=== PATIENT | male | born 1980 | race African-American/Black ===

== ENCOUNTER 2016-12-04 15:09 | Inpatient (IN) | payer OTHER ==
[~2016-12-04] VITALS: Ht 175.3 cm; Wt 70.3 kg
[2016-12-04 15:10] VITALS: BP_SYST 122
[2016-12-04] MEDS ORDERED: FUROSEMIDE 100 MG/10 ML VIAL IVP ONE (16:00)
[2016-12-04] MEDS ORDERED: MORPHINE 4 MG/ML INJ. SYRINGE IVP ONE ×2 (16:00→18:45)
[2016-12-04] MEDS ORDERED: DIPHENHYDRAMINE INJ 50 MG/ML VIAL IVP ONE (16:00)
[2016-12-04 16:46] LABS: BASOPHILS # (AUTO) 0.2 K/uL (0.0-0.2); BASOPHILS % (AUTO) 1.7 % (0.0-2.0); EOSINOPHILS # (AUTO) 0.5 K/uL (0.0-0.4); EOSINOPHILS % (AUTO) 3.8 % (0.0-4.0); HEMATOCRIT 28.8 % (36-54); HEMOGLOBIN 9.5 g/dL (14.0-18.0); LYMPHOCYTES # (AUTO) 3.3 K/uL (1.0-5.5); LYMPHOCYTES % (AUTO) 26.6 % (20.5-51.5); MEAN CORPUSCULAR HEMOGLOBIN 31 pg (27-31); MEAN CORPUSCULAR HGB CONC 33 % (32-36); MEAN CORPUSCULAR VOLUME 94 fL (79.0-98.0); MONOCYTES # (AUTO) 1.5 K/uL (0.0-1.0); MONOCYTES % (AUTO) 12.3 % (1.7-9.3); NEUTROPHILS # (AUTO) 6.9 K/uL (1.8-7.7); NEUTROPHILS % (AUTO) 55.6 % (40.0-70.0); PLATELET COUNT (AUTO) 409 K/uL (130-430); RED BLOOD CELL COUNT(AUTO) 3.08 MIL/uL (4.2-6.2); RED CELL DISTRIBUTION WIDTH 23.6 % (9.0-15.0); WHITE BLOOD COUNT (AUTO) 12.4 K/uL (4.8-10.8)
[2016-12-04 16:59] LABS: INR 1.1 (0.80-1.20); PROTHROMBIN TIME 12.4 SECS (9.5-12.5)
[2016-12-04 17:04] LABS: POTASSIUM 3.5 mmol/L (3.5-5.1)
[2016-12-04 17:05] LABS: CALCIUM 7.9 mg/dL (8.4-11.0); CREATININE 0.93 mg/dL (0.55-1.30); TOTAL BILIRUBIN 0.8 mg/dL (0.0-1.0)
[2016-12-04 17:06] LABS: ALBUMIN 1.3 g/dL (3.4-4.8)
[2016-12-04] MEDS ORDERED: METOPROLOL TARTRATE 5 MG/5 ML VIAL IVP ONE (17:15)
[2016-12-04 17:40] LABS: BILIRUBIN,URINE NEGATIVE (NEGATIVE); BLOOD, URINE 1+ (NEGATIVE); CLARITY/URINE SL HAZY (CLEAR); COLOR,URINE YELLOW (YELLOW); GLUCOSE,URINE NEGATIVE (NEGATIVE); KETONES,URINE NEGATIVE (NEGATIVE); LEUKOCYTE ESTERASE ,URINE 2+ (NEGATIVE); NITRITE, URINE POSITIVE (NEGATIVE); PROTEIN URINE 1+ (NEGATIVE); UROBILINOGEN,URINE 0.2 (0.2-1.0)
[2016-12-04 18:05] LABS: BACTERIA,URINE MANY /HPF (None Seen)
[2016-12-04] MEDS ORDERED: ACETAMINOPHEN 325 MG TABLET PO PRN (18:30)
[2016-12-04] MEDS ORDERED: HYDROcodone/ACETAMIN 5-325 MG TAB (NORCO/ VICODIN) PO PRN (18:30)
[2016-12-04] MEDS ORDERED: ONDANSETRON HCL 4 MG/2 ML VIAL IVP PRN (18:30)
[2016-12-04] MEDS ORDERED: LORazepam 2 MG/ML VIAL IVP PRN (18:30)
[2016-12-04 20:00] VITALS: BP_SYST 148
[2016-12-04] MEDS: FUROSEMIDE 20 MG/2 ML VIAL IVP SCH (20:57)
[2016-12-04 21:00] VITALS: BP_SYST 149
[2016-12-04] MEDS: MORPHINE 2 MG/ML INJ. SYRINGE IVP PRN (21:05)
[2016-12-04] MEDS: LEVOFLOXACIN 500 MG/D5W 100 ML IV SCH (21:14)
[2016-12-04] MEDS ORDERED: LEVOFLOXACIN 500 MG/D5W 100 ML IV ONE (21:15)
[2016-12-04 22:00] VITALS: BP_SYST 125; BP_SYST 148
[2016-12-04] MEDS ORDERED: NORMAL SALINE 5 ML DISP.SYRIN IVF SCH (22:00)
[2016-12-04 23:00] VITALS: BP_SYST 145
[2016-12-04] MEDS ORDERED: D5/0.45 NS 1,000 ML IV SCH (23:00)
[2016-12-04] MEDS: NORMAL SALINE 5 ML DISP.SYRIN IVF SCH (23:00)
[2016-12-04] MEDS: amLODIPine BESYLATE 5 MG TABLET PO SCH (23:00)
[2016-12-04] MEDS: DIPHENHYDRAMINE INJ 50 MG/ML VIAL IVP PRN (23:50)
[2016-12-05] VITALS (16 sets, daily range): BP systolic 120–155
[2016-12-05] MEDS ORDERED: amLODIPine BESYLATE 5 MG TABLET ONE (00:15)
[2016-12-05] MEDS ORDERED: METOPROLOL TARTRATE 25 MG TABLET ONE (00:16)
[2016-12-05] MEDS: METOPROLOL TARTRATE 25 MG TABLET PO SCH ×2 (00:16→09:14)
[2016-12-05] MEDS: PHENYTOIN 100 MG CAPSULE PO SCH ×3 (00:16→20:30)
[2016-12-05] MEDS ORDERED: PHENYTOIN 100 MG CAPSULE ONE (00:18)
[2016-12-05] MEDS: MORPHINE 2 MG/ML INJ. SYRINGE IVP PRN ×5 (02:07→17:48)
[2016-12-05] MEDS: NORMAL SALINE 5 ML DISP.SYRIN IVF SCH ×3 (05:19→22:00)
[2016-12-05 07:05] LABS: HEMATOCRIT 26.1 % (36-54); HEMOGLOBIN 8.7 g/dL (14.0-18.0); MEAN CORPUSCULAR HGB CONC 33 % (32-36)
[2016-12-05 07:08] LABS: ALBUMIN 1.2 g/dL (3.4-4.8); C-REACTIVE PROTEIN QUANT 7.2 mg/dL (0-0.5); CALCIUM 8.4 mg/dL (8.4-11.0); CREATININE 0.93 mg/dL (0.55-1.30); PHOSPHORUS 4.1 mg/dL (2.7-4.5); POTASSIUM 3.1 mmol/L (3.5-5.1)
[2016-12-05 07:09] LABS: MEAN CORPUSCULAR HEMOGLOBIN 31 pg (27-31); MEAN CORPUSCULAR VOLUME 92 fL (79.0-98.0); PLATELET COUNT (AUTO) 365 K/uL (130-430); RED BLOOD CELL COUNT(AUTO) 2.83 MIL/uL (4.2-6.2); WHITE BLOOD COUNT (AUTO) 12.6 K/uL (4.8-10.8)
[2016-12-05 07:59] LABS: ERYTHROCYTE SEDIMENTATION RATE 86 MM/HR (0-15)
[2016-12-05 08:26] LABS: LYMPHOCYTES % (MANUAL) 28 % (20-46)
[2016-12-05 08:27] LABS: BASOPHILS % (MANUAL) 0 % (0-2); EOSINOPHILS % (MANUAL) 1 % (0-7); MONOCYTES % (MANUAL) 12 % (0-11)
[2016-12-05] MEDS: amLODIPine BESYLATE 5 MG TABLET PO SCH (09:15)
[2016-12-05] MEDS: FUROSEMIDE 20 MG/2 ML VIAL IVP SCH ×2 (09:17→20:33)
[2016-12-05] MEDS ORDERED: MORPHINE 2 MG/ML INJ. SYRINGE ONE (11:25)
[2016-12-05] MEDS: DIPHENHYDRAMINE INJ 50 MG/ML VIAL IVP PRN ×2 (11:32→20:15)
[2016-12-05] MEDS ORDERED: POTASSIUM CHLORIDE 20 MEQ TAB.PRT.SR PO ONE (11:45)
[2016-12-05] MEDS ORDERED: VANCOMYCIN HCL 1,000 MG in NS 250 ML IV SCH (17:00)
[2016-12-05] MEDS: LEVOFLOXACIN 500 MG/D5W 100 ML IV SCH (18:22)
[2016-12-05] MEDS: METOPROLOL TARTRATE 50 MG TABLET PO SCH (20:31)
[2016-12-05] MEDS: HYDROcodone/ACETAMIN 10-325 MG TAB PO PRN (23:48)
[2016-12-06] VITALS: BP_SYST 112
[2016-12-06] MEDS: MORPHINE 2 MG/ML INJ. SYRINGE IVP PRN ×6 (02:09→22:10)
[2016-12-06] MEDS: DIPHENHYDRAMINE INJ 50 MG/ML VIAL IVP PRN ×3 (02:09→17:19)
[2016-12-06 04:00] VITALS: BP_SYST 115
[2016-12-06] MEDS: NORMAL SALINE 5 ML DISP.SYRIN IVF SCH ×3 (06:10→22:15)
[2016-12-06 07:39] LABS: BASOPHILS % (AUTO) 0.3 % (0.0-2.0); EOSINOPHILS # (AUTO) 0.3 K/uL (0.0-0.4); EOSINOPHILS % (AUTO) 2.8 % (0.0-4.0); HEMATOCRIT 25.8 % (36-54); HEMOGLOBIN 8.7 g/dL (14.0-18.0); LYMPHOCYTES # (AUTO) 3.8 K/uL (1.0-5.5); LYMPHOCYTES % (AUTO) 31.7 % (20.5-51.5); MEAN CORPUSCULAR HEMOGLOBIN 32 pg (27-31); MEAN CORPUSCULAR HGB CONC 34 % (32-36); MONOCYTES # (AUTO) 1.6 K/uL (0.0-1.0); MONOCYTES % (AUTO) 13.6 % (1.7-9.3); NEUTROPHILS # (AUTO) 6.3 K/uL (1.8-7.7); NEUTROPHILS % (AUTO) 51.6 % (40.0-70.0); PLATELET COUNT (AUTO) 347 K/uL (130-430); RED BLOOD CELL COUNT(AUTO) 2.76 MIL/uL (4.2-6.2); RED CELL DISTRIBUTION WIDTH 23.5 % (9.0-15.0)
[2016-12-06 08:00] VITALS: BP_SYST 124
[2016-12-06 08:03] LABS: C-REACTIVE PROTEIN QUANT 9.3 mg/dL (0-0.5); CALCIUM 8.6 mg/dL (8.4-11.0); CREATININE 1.02 mg/dL (0.55-1.30); POTASSIUM 3.7 mmol/L (3.5-5.1)
[2016-12-06 08:05] LABS: MEAN CORPUSCULAR VOLUME 94 fL (79.0-98.0)
[2016-12-06] MEDS: HYDROcodone/ACETAMIN 10-325 MG TAB PO PRN ×3 (08:31→23:47)
[2016-12-06] MEDS: PHENYTOIN 100 MG CAPSULE PO SCH ×2 (08:37→21:24)
[2016-12-06] MEDS: FUROSEMIDE 20 MG/2 ML VIAL IVP SCH ×2 (08:37→21:25)
[2016-12-06] MEDS: METOPROLOL TARTRATE 50 MG TABLET PO SCH ×2 (08:38→21:24)
[2016-12-06] MEDS: ENOXAPARIN SODIUM 40 MG/0.4 ML SYRINGE SUBCUT SCH (08:39)
[2016-12-06] MEDS: amLODIPine BESYLATE 5 MG TABLET PO SCH (08:39)
[2016-12-06 09:24] LABS: ERYTHROCYTE SEDIMENTATION RATE 85 MM/HR (0-15)
[2016-12-06 12:52] VITALS: BP_SYST 122
[2016-12-06] MEDS: VANCOMYCIN HCL 1,000 MG in NS 250 ML IV SCH (16:11)
[2016-12-06 16:14] VITALS: BP_SYST 126
[2016-12-06] MEDS: LEVOFLOXACIN 500 MG/D5W 100 ML IV SCH (17:55)
[2016-12-06 20:00] VITALS: BP_SYST 127
[2016-12-07 00:24] VITALS: BP_SYST 134
[2016-12-07] MEDS: DIPHENHYDRAMINE INJ 50 MG/ML VIAL IVP PRN ×4 (00:26→17:38)
[2016-12-07] MEDS: MORPHINE 2 MG/ML INJ. SYRINGE IVP PRN ×6 (03:32→23:34)
[2016-12-07] MEDS: VANCOMYCIN HCL 1,000 MG in NS 250 ML IV SCH ×2 (05:37→17:36)
[2016-12-07] MEDS: NORMAL SALINE 5 ML DISP.SYRIN IVF SCH ×3 (05:40→21:21)
[2016-12-07] MEDS: HYDROcodone/ACETAMIN 10-325 MG TAB PO PRN ×4 (05:49→21:21)
[2016-12-07 06:02] VITALS: BP_SYST 120
[2016-12-07 07:48] LABS: BASOPHILS % (AUTO) 0.4 % (0.0-2.0); EOSINOPHILS # (AUTO) 0.3 K/uL (0.0-0.4); EOSINOPHILS % (AUTO) 2.9 % (0.0-4.0); HEMOGLOBIN 8.7 g/dL (14.0-18.0); LYMPHOCYTES # (AUTO) 3.1 K/uL (1.0-5.5); LYMPHOCYTES % (AUTO) 26.7 % (20.5-51.5); MEAN CORPUSCULAR HEMOGLOBIN 32 pg (27-31); MEAN CORPUSCULAR HGB CONC 33 % (32-36); MEAN CORPUSCULAR VOLUME 95 fL (79.0-98.0); MONOCYTES # (AUTO) 1.2 K/uL (0.0-1.0); NEUTROPHILS # (AUTO) 7.1 K/uL (1.8-7.7); PLATELET COUNT (AUTO) 338 K/uL (130-430); RED BLOOD CELL COUNT(AUTO) 2.77 MIL/uL (4.2-6.2); RED CELL DISTRIBUTION WIDTH 22.8 % (9.0-15.0); WHITE BLOOD COUNT (AUTO) 11.7 K/uL (4.8-10.8)
[2016-12-07 07:57] LABS: ALBUMIN 1.3 g/dL (3.4-4.8); C-REACTIVE PROTEIN QUANT 10.5 mg/dL (0-0.5); CALCIUM 8.5 mg/dL (8.4-11.0); CREATININE 1.11 mg/dL (0.55-1.30); POTASSIUM 3.6 mmol/L (3.5-5.1); TOTAL BILIRUBIN 0.9 mg/dL (0.0-1.0)
[2016-12-07 08:00] VITALS: BP_SYST 121
[2016-12-07 08:10] LABS: HEMATOCRIT 26.2 % (36-54)
[2016-12-07 09:13] LABS: ERYTHROCYTE SEDIMENTATION RATE 86 MM/HR (0-15)
[2016-12-07] MEDS: PHENYTOIN 100 MG CAPSULE PO SCH ×2 (10:02→21:20)
[2016-12-07] MEDS: METOPROLOL TARTRATE 50 MG TABLET PO SCH ×2 (10:03→21:20)
[2016-12-07] MEDS: ENOXAPARIN SODIUM 40 MG/0.4 ML SYRINGE SUBCUT SCH (10:04)
[2016-12-07] MEDS: amLODIPine BESYLATE 5 MG TABLET PO SCH (10:06)
[2016-12-07] MEDS: FUROSEMIDE 20 MG/2 ML VIAL IVP SCH ×2 (10:42→21:19)
[2016-12-07] MEDS ORDERED: POTASSIUM CHLORIDE 20 MEQ TAB.PRT.SR PO ONE (11:00)
[2016-12-07 14:29] LABS: INR 1.3 (0.80-1.20); PROTHROMBIN TIME 14.7 SECS (9.5-12.5)
[2016-12-07 14:48] LABS: TOTAL IRON BIND. CAPACITY 148 ug/dL (250-450)
[2016-12-07 14:49] LABS: ACETAMINOPHEN 2 ug/mL (1-30)
[2016-12-07] MEDS: LEVOFLOXACIN 500 MG/D5W 100 ML IV SCH (19:14)
[2016-12-07 19:40] VITALS: BP_SYST 122
[2016-12-08 00:28] LABS: TPROTEIN U,24HR 426.7 mg/24HR (0-130)
[2016-12-08] MEDS: DIPHENHYDRAMINE INJ 50 MG/ML VIAL IVP PRN ×3 (00:36→20:40)
[2016-12-08 00:47] VITALS: BP_SYST 120
[2016-12-08] MEDS: HYDROcodone/ACETAMIN 10-325 MG TAB PO PRN ×2 (02:18→09:12)
[2016-12-08] MEDS: MORPHINE 2 MG/ML INJ. SYRINGE IVP PRN ×5 (03:31→22:12)
[2016-12-08] MEDS: VANCOMYCIN HCL 1,000 MG in NS 250 ML IV SCH ×2 (04:08→16:15)
[2016-12-08 04:09] VITALS: BP_SYST 115
[2016-12-08 07:16] LABS: BASOPHILS # (AUTO) 0.1 K/uL (0.0-0.2); BASOPHILS % (AUTO) 0.5 % (0.0-2.0); EOSINOPHILS # (AUTO) 0.3 K/uL (0.0-0.4); EOSINOPHILS % (AUTO) 2.2 % (0.0-4.0); HEMATOCRIT 24.5 % (36-54); HEMOGLOBIN 8.2 g/dL (14.0-18.0); LYMPHOCYTES # (AUTO) 3.4 K/uL (1.0-5.5); LYMPHOCYTES % (AUTO) 26.2 % (20.5-51.5); MEAN CORPUSCULAR HEMOGLOBIN 31 pg (27-31); MEAN CORPUSCULAR HGB CONC 33 % (32-36); MEAN CORPUSCULAR VOLUME 93 fL (79.0-98.0); MONOCYTES # (AUTO) 1.5 K/uL (0.0-1.0); MONOCYTES % (AUTO) 11.4 % (1.7-9.3); NEUTROPHILS # (AUTO) 7.5 K/uL (1.8-7.7); NEUTROPHILS % (AUTO) 59.7 % (40.0-70.0); PLATELET COUNT (AUTO) 325 K/uL (130-430); RED BLOOD CELL COUNT(AUTO) 2.63 MIL/uL (4.2-6.2); RED CELL DISTRIBUTION WIDTH 22.9 % (9.0-15.0); WHITE BLOOD COUNT (AUTO) 12.8 K/uL (4.8-10.8)
[2016-12-08 07:49] LABS: ALBUMIN 1.2 g/dL (3.4-4.8); CALCIUM 8.2 mg/dL (8.4-11.0); CREATININE 1.11 mg/dL (0.55-1.30); POTASSIUM 3.6 mmol/L (3.5-5.1)
[2016-12-08 08:07] LABS: C-REACTIVE PROTEIN QUANT 10.7 mg/dL (0-0.5)
[2016-12-08 08:30] LABS: ERYTHROCYTE SEDIMENTATION RATE 91 MM/HR (0-15)
[2016-12-08 08:32] VITALS: BP_SYST 128
[2016-12-08] MEDS: FUROSEMIDE 20 MG/2 ML VIAL IVP SCH ×2 (08:45→22:11)
[2016-12-08] MEDS: PHENYTOIN 100 MG CAPSULE PO SCH ×2 (09:11→22:08)
[2016-12-08] MEDS: amLODIPine BESYLATE 5 MG TABLET PO SCH (09:12)
[2016-12-08] MEDS: ENOXAPARIN SODIUM 40 MG/0.4 ML SYRINGE SUBCUT SCH (09:13)
[2016-12-08] MEDS: METOPROLOL TARTRATE 50 MG TABLET PO SCH ×2 (09:13→21:00)
[2016-12-08 11:32] LABS: BARBITURATE, URINE POSITIVE (NEG <=200); OPIATE, URINE POSITIVE (NEG <=100)
[2016-12-08 11:33] LABS: BENZODIAZEPINE, URINE NEGATIVE (NEG <=150); CANNABINOID, URINE NEGATIVE (NEG <=50); COCAINE, URINE NEGATIVE (NEG <=150); METHAMPHETAMINES SCREEN,URINE NEGATIVE (NEG <=500); PHENCYCLIDINE SCREEN,URINE NEGATIVE (NEG <=25); UR TRICYCLIC ANTIDEPRESSANTS NEGATIVE (NEG <=300); URINE AMPHETAMINE NEGATIVE (NEG <=500); URINE METHADONE NEGATIVE (NEG <=200); URINE OXYCODONE SCREEN NEGATIVE (NEG <=100); URINE PROPOXYPHENE SCREEN NEGATIVE (NEG <=300)
[2016-12-08 12:23] VITALS: BP_SYST 111
[2016-12-08] MEDS: NORMAL SALINE 5 ML DISP.SYRIN IVF SCH ×2 (14:00→22:11)
[2016-12-08 16:07] VITALS: BP_SYST 131
[2016-12-08] MEDS: LEVOFLOXACIN 500 MG/D5W 100 ML IV SCH (18:28)
[2016-12-08 20:00] VITALS: BP_SYST 114
[2016-12-09 00:07] VITALS: BP_SYST 128
[2016-12-09] MEDS: HYDROcodone/ACETAMIN 10-325 MG TAB PO PRN ×4 (00:39→22:23)
[2016-12-09] MEDS: MORPHINE 2 MG/ML INJ. SYRINGE IVP PRN ×5 (02:22→20:07)
[2016-12-09 04:45] VITALS: BP_SYST 152
[2016-12-09] MEDS: NORMAL SALINE 5 ML DISP.SYRIN IVF SCH ×3 (06:21→20:06)
[2016-12-09] MEDS ORDERED: VANCOMYCIN HCL 1000 MG/VIAL IV ONE (06:21)
[2016-12-09] MEDS: VANCOMYCIN HCL 1,000 MG in NS 250 ML IV SCH ×2 (06:21→16:44)
[2016-12-09 07:39] LABS: ALBUMIN 1.2 g/dL (3.4-4.8); BILIRUBIN,DIRECT 0.4 mg/dL (0.0-0.3); CALCIUM 8.2 mg/dL (8.4-11.0); CREATININE 0.96 mg/dL (0.55-1.30); TOTAL BILIRUBIN 1.1 mg/dL (0.0-1.0)
[2016-12-09 08:00] VITALS: BP_SYST 135
[2016-12-09] MEDS: PHENYTOIN 100 MG CAPSULE PO SCH ×2 (08:35→20:05)
[2016-12-09] MEDS: amLODIPine BESYLATE 5 MG TABLET PO SCH (08:35)
[2016-12-09] MEDS: METOPROLOL TARTRATE 50 MG TABLET PO SCH ×2 (08:36→20:05)
[2016-12-09] MEDS: FUROSEMIDE 20 MG/2 ML VIAL IVP SCH ×2 (08:38→20:10)
[2016-12-09] MEDS: DIPHENHYDRAMINE INJ 50 MG/ML VIAL IVP PRN ×3 (08:38→22:28)
[2016-12-09] MEDS: ENOXAPARIN SODIUM 40 MG/0.4 ML SYRINGE SUBCUT SCH (08:38)
[2016-12-09 12:47] VITALS: BP_SYST 129
[2016-12-09 16:12] VITALS: BP_SYST 123
[2016-12-09] MEDS: LEVOFLOXACIN 500 MG/D5W 100 ML IV SCH (18:47)
[2016-12-09 20:20] VITALS: BP_SYST 132
[2016-12-09] MEDS ORDERED: POTASSIUM CHLORIDE 20 MEQ TAB.PRT.SR PO ONE (21:00)
[2016-12-10 00:21] VITALS: BP_SYST 119
[2016-12-10] MEDS: MORPHINE 2 MG/ML INJ. SYRINGE IVP PRN ×6 (01:15→23:01)
[2016-12-10] MEDS: HYDROcodone/ACETAMIN 10-325 MG TAB PO PRN ×5 (02:23→21:10)
[2016-12-10] MEDS: DIPHENHYDRAMINE INJ 50 MG/ML VIAL IVP PRN ×3 (04:31→16:23)
[2016-12-10] MEDS: VANCOMYCIN HCL 1,000 MG in NS 250 ML IV SCH ×2 (04:33→17:01)
[2016-12-10 04:44] VITALS: BP_SYST 109
[2016-12-10] MEDS: NORMAL SALINE 5 ML DISP.SYRIN IVF SCH ×3 (05:51→21:14)
[2016-12-10 08:02] VITALS: BP_SYST 119
[2016-12-10] MEDS: ENOXAPARIN SODIUM 40 MG/0.4 ML SYRINGE SUBCUT SCH (08:49)
[2016-12-10] MEDS: PHENYTOIN 100 MG CAPSULE PO SCH ×2 (08:50→21:08)
[2016-12-10] MEDS: amLODIPine BESYLATE 5 MG TABLET PO SCH (08:50)
[2016-12-10] MEDS: METOPROLOL TARTRATE 50 MG TABLET PO SCH ×2 (08:51→21:08)
[2016-12-10] MEDS: FUROSEMIDE 20 MG/2 ML VIAL IVP SCH ×2 (08:53→21:09)
[2016-12-10] MEDS ORDERED: POTASSIUM CHLORIDE 20 MEQ TAB.PRT.SR PO ONE (10:30)
[2016-12-10 11:57] VITALS: BP_SYST 134
[2016-12-10 12:05] LABS: BASOPHILS # (AUTO) 0.1 K/uL (0.0-0.2); BASOPHILS % (AUTO) 1.1 % (0.0-2.0); EOSINOPHILS # (AUTO) 0.6 K/uL (0.0-0.4); EOSINOPHILS % (AUTO) 4.9 % (0.0-4.0); HEMATOCRIT 28.8 % (36-54); HEMOGLOBIN 9.3 g/dL (14.0-18.0); LYMPHOCYTES # (AUTO) 2.7 K/uL (1.0-5.5); LYMPHOCYTES % (AUTO) 22.9 % (20.5-51.5); MEAN CORPUSCULAR HEMOGLOBIN 31 pg (27-31); MEAN CORPUSCULAR HGB CONC 32 % (32-36); MEAN CORPUSCULAR VOLUME 95 fL (79.0-98.0); MONOCYTES # (AUTO) 1.3 K/uL (0.0-1.0); MONOCYTES % (AUTO) 10.9 % (1.7-9.3); NEUTROPHILS # (AUTO) 7.1 K/uL (1.8-7.7); PLATELET COUNT (AUTO) 369 K/uL (130-430); RED BLOOD CELL COUNT(AUTO) 3.03 MIL/uL (4.2-6.2); RED CELL DISTRIBUTION WIDTH 23.2 % (9.0-15.0); WHITE BLOOD COUNT (AUTO) 11.8 K/uL (4.8-10.8)
[2016-12-10 12:23] LABS: ALBUMIN 1.4 g/dL (3.4-4.8); BILIRUBIN,DIRECT 0.3 mg/dL (0.0-0.3); C-REACTIVE PROTEIN QUANT 9.2 mg/dL (0-0.5); CALCIUM 8.4 mg/dL (8.4-11.0); CREATININE 0.89 mg/dL (0.55-1.30); POTASSIUM 3.4 mmol/L (3.5-5.1)
[2016-12-10 12:37] LABS: NEUTROPHILS % (AUTO) 60.2 % (40.0-70.0)
[2016-12-10 12:52] LABS: ERYTHROCYTE SEDIMENTATION RATE 95 MM/HR (0-15)
[2016-12-10 16:17] VITALS: BP_SYST 130
[2016-12-10] MEDS: LEVOFLOXACIN 500 MG/D5W 100 ML IV SCH (18:48)
[2016-12-10 20:10] VITALS: BP_SYST 136
[2016-12-11] MEDS: DIPHENHYDRAMINE INJ 50 MG/ML VIAL IVP PRN ×4 (00:02→22:32)
[2016-12-11 00:14] VITALS: BP_SYST 127
[2016-12-11] MEDS: MORPHINE 2 MG/ML INJ. SYRINGE IVP PRN ×2 (02:54→06:41)
[2016-12-11] MEDS: VANCOMYCIN HCL 1,000 MG in NS 250 ML IV SCH ×2 (04:04→17:27)
[2016-12-11] MEDS: HYDROcodone/ACETAMIN 10-325 MG TAB PO PRN ×4 (04:57→21:05)
[2016-12-11] MEDS: NORMAL SALINE 5 ML DISP.SYRIN IVF SCH ×3 (04:57→20:50)
[2016-12-11 05:08] VITALS: BP_SYST 125
[2016-12-11 06:41] LABS: ALBUMIN 1.3 g/dL (3.4-4.8); CALCIUM 8.2 mg/dL (8.4-11.0); CREATININE 0.89 mg/dL (0.55-1.30); POTASSIUM 3.4 mmol/L (3.5-5.1)
[2016-12-11 08:00] VITALS: BP_SYST 133
[2016-12-11] MEDS: METOPROLOL TARTRATE 50 MG TABLET PO SCH ×2 (08:37→20:49)
[2016-12-11] MEDS: amLODIPine BESYLATE 5 MG TABLET PO SCH (08:38)
[2016-12-11] MEDS: ENOXAPARIN SODIUM 40 MG/0.4 ML SYRINGE SUBCUT SCH (08:38)
[2016-12-11] MEDS: PHENYTOIN 100 MG CAPSULE PO SCH ×2 (08:39→20:49)
[2016-12-11] MEDS: FUROSEMIDE 20 MG/2 ML VIAL IVP SCH ×2 (08:39→22:25)
[2016-12-11 12:15] VITALS: BP_SYST 133
[2016-12-11] MEDS: MORPHINE 4 MG/ML INJ. SYRINGE IVP PRN ×3 (14:14→23:02)
[2016-12-11 16:08] VITALS: BP_SYST 139
[2016-12-11 20:00] VITALS: BP_SYST 143
[2016-12-11] MEDS ORDERED: BEN50 PO (21:00)
[2016-12-11] MEDS ORDERED: HYDR-4100 PO (21:00)
[2016-12-11] MEDS ORDERED: AMLO5TAB4 PO (21:00)
[2016-12-11] MEDS ORDERED: BACL10TA PO (21:00)
[2016-12-11] MEDS ORDERED: MORP4SYR IVP (21:00)
[2016-12-11] MEDS ORDERED: METO-442 PO (21:00)
[2016-12-11] MEDS ORDERED: PHEN100C4 PO (21:00)
[2016-12-11] MEDS: BACLOFEN 10 MG TABLET PO SCH (22:24)
[2016-12-12 00:58] VITALS: BP_SYST 136
[2016-12-12] MEDS: HYDROcodone/ACETAMIN 10-325 MG TAB PO PRN ×4 (01:19→15:20)
[2016-12-12] MEDS: MORPHINE 4 MG/ML INJ. SYRINGE IVP PRN ×4 (03:24→16:35)
[2016-12-12] MEDS: DIPHENHYDRAMINE INJ 50 MG/ML VIAL IVP PRN ×2 (04:48→10:49)
[2016-12-12 04:51] VITALS: BP_SYST 138
[2016-12-12] MEDS: VANCOMYCIN HCL 1,000 MG in NS 250 ML IV SCH (04:51)
[2016-12-12] MEDS: NORMAL SALINE 5 ML DISP.SYRIN IVF SCH ×2 (06:11→14:00)
[2016-12-12 07:37] LABS: BASOPHILS # (AUTO) 0.1 K/uL (0.0-0.2); BASOPHILS % (AUTO) 0.4 % (0.0-2.0); EOSINOPHILS # (AUTO) 0.6 K/uL (0.0-0.4); EOSINOPHILS % (AUTO) 4.7 % (0.0-4.0); HEMATOCRIT 26.7 % (36-54); HEMOGLOBIN 8.7 g/dL (14.0-18.0); LYMPHOCYTES # (AUTO) 3.6 K/uL (1.0-5.5); LYMPHOCYTES % (AUTO) 28.9 % (20.5-51.5); MEAN CORPUSCULAR HEMOGLOBIN 31 pg (27-31); MEAN CORPUSCULAR HGB CONC 33 % (32-36); MEAN CORPUSCULAR VOLUME 96 fL (79.0-98.0); MONOCYTES # (AUTO) 1.6 K/uL (0.0-1.0); MONOCYTES % (AUTO) 12.4 % (1.7-9.3); NEUTROPHILS # (AUTO) 6.7 K/uL (1.8-7.7); NEUTROPHILS % (AUTO) 53.6 % (40.0-70.0); PLATELET COUNT (AUTO) 325 K/uL (130-430); RED BLOOD CELL COUNT(AUTO) 2.79 MIL/uL (4.2-6.2); RED CELL DISTRIBUTION WIDTH 23.2 % (9.0-15.0); WHITE BLOOD COUNT (AUTO) 12.6 K/uL (4.8-10.8)
[2016-12-12 08:02] LABS: ALBUMIN 1.4 g/dL (3.4-4.8); BILIRUBIN,DIRECT 0.3 mg/dL (0.0-0.3); C-REACTIVE PROTEIN QUANT 6.1 mg/dL (0-0.5); CALCIUM 7.9 mg/dL (8.4-11.0); CREATININE 0.81 mg/dL (0.55-1.30); POTASSIUM 3.4 mmol/L (3.5-5.1); TOTAL BILIRUBIN 0.8 mg/dL (0.0-1.0)
[2016-12-12 08:28] VITALS: BP_SYST 127
[2016-12-12 08:40] LABS: ERYTHROCYTE SEDIMENTATION RATE 77 MM/HR (0-15)
[2016-12-12] MEDS: METOPROLOL TARTRATE 50 MG TABLET PO SCH (08:42)
[2016-12-12] MEDS: PHENYTOIN 100 MG CAPSULE PO SCH (08:42)
[2016-12-12] MEDS: BACLOFEN 10 MG TABLET PO SCH ×2 (08:43→15:20)
[2016-12-12] MEDS: amLODIPine BESYLATE 5 MG TABLET PO SCH (08:43)
[2016-12-12] MEDS: FUROSEMIDE 20 MG/2 ML VIAL IVP SCH (10:24)
[2016-12-12] MEDS: ENOXAPARIN SODIUM 40 MG/0.4 ML SYRINGE SUBCUT SCH (10:24)
[2016-12-12 11:26] VITALS: BP_SYST 138
[2016-12-12] MEDS ORDERED: POTASSIUM CHLORIDE 20 MEQ TAB.PRT.SR PO ONE (13:45)
[2016-12-12 14:00] LABS: ANTI NUCLEAR AB WITH REFLEX Negative (Negative); CERULOPLASMIN 32.5 mg/dL (16.0-31.0); HEPATITIS A AB, IgM Negative (Negative); HEPATITIS B CORE AB, IgM Negative (Negative); HEPATITIS B SURFACE AG Negative (Negative); LIVER-KIDNEY MICROSOMAL AB 2.2 Units (0.0-20.0)
[2016-12-12 14:11] LABS: FERRITIN 1275 ng/mL (30-400)
[2016-12-12 14:13] LABS: ALPHA-1-ANTITRYPSIN, S 292 mg/dL (90-200)
[2016-12-12 14:14] LABS: ANTI-SMOOTH MUSCLE AB 21 Units (0-19)
[2016-12-12 15:36] VITALS: BP_SYST 125
[2016-12-12 15:51] VITALS: BP_SYST 125
== END 2016-12-12 16:50 | DRG 720 ==
LOC: SED 15:09 → SIC 18:10 → STU 12-05 14:17 → SMU 12-10 10:53
PROVIDERS: ADMIT Preventive Medicine Preventive Medicine/Occupational Environmental Medicine; ATTEND Preventive Medicine Preventive Medicine/Occupational Environmental Medicine
DX: A41.9 Sepsis, unspecified organism (principal); I50.23 Acute on chronic systolic (congestive) heart failure; E43 Unspecified severe protein-calorie malnutrition; S72.001A Fracture of unspecified part of neck of right femur, initial encounter for closed fracture; I11.0 Hypertensive heart disease with heart failure; J18.9 Pneumonia, unspecified organism; S72.002A Fracture of unspecified part of neck of left femur, initial encounter for closed fracture; I50.9 Heart failure, unspecified; N39.0 Urinary tract infection, site not specified; D64.9 Anemia, unspecified; E88.09 Other disorders of plasma-protein metabolism, not elsewhere classified; R73.9 Hyperglycemia, unspecified; R74.0 Nonspecific elevation of levels of transaminase and lactic acid dehydrogenase [LDH]; E83.52 Hypercalcemia; E87.5 Hyperkalemia; G89.29 Other chronic pain; I47.1 Supraventricular tachycardia; L89.90 Pressure ulcer of unspecified site, unspecified stage; G40.909 Epilepsy, unspecified, not intractable, without status epilepticus; J45.909 Unspecified asthma, uncomplicated; W19.XXXA Unspecified fall, initial encounter; Y93.89 Activity, other specified; Y92.89 Other specified places as the place of occurrence of the external cause; Y99.8 Other external cause status; Z87.11 Personal history of peptic ulcer disease; Z91.018 Allergy to other foods; Z90.49 Acquired absence of other specified parts of digestive tract; Z87.891 Personal history of nicotine dependence; Z86.14 Personal history of Methicillin resistant Staphylococcus aureus infection; Z22.322 Carrier or suspected carrier of Methicillin resistant Staphylococcus aureus
CPT/HCPCS: 36415; 71010; 72170-TC; 76700-TC; 80048; 80053; 80074; 80076; 80202-TC; 80307; 81000-TC; 82103; 82105; 82390; 82550-TC; 82728; 82784; 83516; 83540-TC; 83550-TC; 83605; 83735-TC; 83880; 84100-TC; 84156; 84484; 85007; 85025; 85027; 85610-TC; 85651-TC; 85730-TC; 86038; 86140; 86376; 87040-TC; 87081; 87086; 93005; 93306; 96374; 96375; 96376; 99291; G0480; G0481; J1200; J1650; J1940; J1956; J2060; J2270; J2405; J3370; J3490; J7040; J7050

== ENCOUNTER 2016-12-28 11:57 | Inpatient (IN) | payer OTHER ==
[~2016-12-28] VITALS: Ht 175.3 cm; Wt 75.7 kg
[2016-12-28 11:57] VITALS: BP_SYST 143
[~2016-12-28 11:57] MED LIST: AMLO5TAB4 PO; BACL10TA PO; BEN50 PO; HYDR-4100 PO; METO-442 PO; MORP4SYR IVP; PHEN100C4 PO
[2016-12-28] MEDS ORDERED: MORPHINE 2 MG/ML INJ. SYRINGE IVP ONE (12:30)
[2016-12-28 12:37] LABS: HEMOGLOBIN 9.6 g/dL (14.0-18.0); RED CELL DISTRIBUTION WIDTH 17.2 % (9.0-15.0)
[2016-12-28 12:40] LABS: BASOPHILS # (AUTO) 0.1 K/uL (0.0-0.2); EOSINOPHILS # (AUTO) 0.5 K/uL (0.0-0.4); EOSINOPHILS % (AUTO) 6.4 % (0.0-4.0); HEMATOCRIT 29.3 % (36-54); LYMPHOCYTES # (AUTO) 1.9 K/uL (1.0-5.5); LYMPHOCYTES % (AUTO) 22.5 % (20.5-51.5); MEAN CORPUSCULAR HEMOGLOBIN 31 pg (27-31); MEAN CORPUSCULAR HGB CONC 33 % (32-36); MEAN CORPUSCULAR VOLUME 95 fL (79.0-98.0); MONOCYTES % (AUTO) 11.7 % (1.7-9.3); NEUTROPHILS # (AUTO) 4.9 K/uL (1.8-7.7); NEUTROPHILS % (AUTO) 58.4 % (40.0-70.0); PLATELET COUNT (AUTO) 360 K/uL (130-430); RED BLOOD CELL COUNT(AUTO) 3.09 MIL/uL (4.2-6.2); WHITE BLOOD COUNT (AUTO) 8.4 K/uL (4.8-10.8)
[2016-12-28 12:42] LABS: CALCIUM 8.4 mg/dL (8.4-11.0); CREATININE 0.81 mg/dL (0.55-1.30); POTASSIUM 3.8 mmol/L (3.5-5.1)
[2016-12-28 12:46] LABS: INR 1.1 (0.80-1.20); PROTHROMBIN TIME 12.1 SECS (9.5-12.5)
[2016-12-28 12:47] LABS: ALBUMIN 1.9 g/dL (3.4-4.8); TOTAL BILIRUBIN 0.5 mg/dL (0.0-1.0)
[2016-12-28] MEDS ORDERED: FUROSEMIDE 40 MG/4 ML VIAL IVP ONE (13:45)
[2016-12-28] MEDS ORDERED: NITROGLYCERIN 1 INCH (GM) OINT. TP ONE (13:45)
[2016-12-28] MEDS ORDERED: DIPHENHYDRAMINE INJ 50 MG/ML VIAL IVP ONE (13:45)
[2016-12-28] MEDS ORDERED: LORazepam 2 MG/ML VIAL IVP PRN (14:30)
[2016-12-28] MEDS ORDERED: ONDANSETRON HCL 4 MG/2 ML VIAL IVP PRN (14:30)
[2016-12-28 15:00] VITALS: BP_SYST 133
[2016-12-28 15:03] LABS: BILIRUBIN,URINE NEGATIVE (NEGATIVE); BLOOD, URINE NEGATIVE (NEGATIVE); CLARITY/URINE CLEAR (CLEAR); COLOR,URINE YELLOW (YELLOW); GLUCOSE,URINE NEGATIVE (NEGATIVE); KETONES,URINE NEGATIVE (NEGATIVE); LEUKOCYTE ESTERASE ,URINE TRACE (NEGATIVE); NITRITE, URINE NEGATIVE (NEGATIVE); PROTEIN URINE NEGATIVE (NEGATIVE); UROBILINOGEN,URINE 0.2 (0.2-1.0)
[2016-12-28 15:58] LABS: BACTERIA,URINE FEW /HPF (None Seen); MUCUS,URINE None Seen /LPF (None Seen); RBC,URINE NONE SEEN /HPF (0-3)
[2016-12-28] MEDS ORDERED: ACETAMINOPHEN 325 MG TABLET PO PRN (16:00)
[2016-12-28 16:06] VITALS: BP_SYST 130
[2016-12-28] MEDS: BACLOFEN 10 MG TABLET PO SCH ×2 (16:36→20:35)
[2016-12-28] MEDS: MORPHINE 4 MG/ML INJ. SYRINGE IVP PRN ×2 (16:37→20:36)
[2016-12-28] MEDS: DIPHENHYDRAMINE HCL 50 MG CAPSULE PO PRN (18:40)
[2016-12-28] MEDS: ENOXAPARIN SODIUM 40 MG/0.4 ML SYRINGE SUBCUT SCH (20:04)
[2016-12-28 20:07] VITALS: BP_SYST 143
[2016-12-28] MEDS: METOPROLOL TARTRATE 50 MG TABLET PO SCH (20:36)
[2016-12-28] MEDS: FUROSEMIDE 20 MG/2 ML VIAL IVP SCH (20:37)
[2016-12-28] MEDS: PHENYTOIN 100 MG CAPSULE PO SCH (20:48)
[2016-12-28] MEDS ORDERED: NORMAL SALINE 5 ML DISP.SYRIN IVF SCH (22:00)
[2016-12-28] MEDS: NORMAL SALINE 5 ML DISP.SYRIN IVF SCH (22:05)
[2016-12-29] VITALS: BP_SYST 124
[2016-12-29] MEDS: DIPHENHYDRAMINE HCL 50 MG CAPSULE PO PRN ×4 (00:40→21:08)
[2016-12-29] MEDS: MORPHINE 4 MG/ML INJ. SYRINGE IVP PRN ×5 (00:43→20:19)
[2016-12-29 04:00] VITALS: BP_SYST 141
[2016-12-29] MEDS: NORMAL SALINE 5 ML DISP.SYRIN IVF SCH ×3 (05:12→22:00)
[2016-12-29] MEDS: HYDROcodone/ACETAMIN 10-325 MG TAB PO PRN ×3 (05:18→18:55)
[2016-12-29 06:34] LABS: BASOPHILS % (AUTO) 0.3 % (0.0-2.0); EOSINOPHILS # (AUTO) 0.6 K/uL (0.0-0.4); EOSINOPHILS % (AUTO) 6.1 % (0.0-4.0); HEMATOCRIT 27.4 % (36-54); HEMOGLOBIN 8.7 g/dL (14.0-18.0); LYMPHOCYTES # (AUTO) 3.1 K/uL (1.0-5.5); LYMPHOCYTES % (AUTO) 32.2 % (20.5-51.5); MEAN CORPUSCULAR HEMOGLOBIN 30 pg (27-31); MEAN CORPUSCULAR HGB CONC 32 % (32-36); MEAN CORPUSCULAR VOLUME 96 fL (79.0-98.0); MONOCYTES # (AUTO) 1.2 K/uL (0.0-1.0); MONOCYTES % (AUTO) 12.2 % (1.7-9.3); NEUTROPHILS # (AUTO) 4.6 K/uL (1.8-7.7); NEUTROPHILS % (AUTO) 49.2 % (40.0-70.0); PLATELET COUNT (AUTO) 374 K/uL (130-430); RED BLOOD CELL COUNT(AUTO) 2.86 MIL/uL (4.2-6.2); RED CELL DISTRIBUTION WIDTH 16.9 % (9.0-15.0); WHITE BLOOD COUNT (AUTO) 9.5 K/uL (4.8-10.8)
[2016-12-29 07:06] LABS: CALCIUM 8.6 mg/dL (8.4-11.0); POTASSIUM 3.1 mmol/L (3.5-5.1)
[2016-12-29 07:07] LABS: CREATININE 0.78 mg/dL (0.55-1.30)
[2016-12-29] MEDS: BACLOFEN 10 MG TABLET PO SCH ×3 (08:19→21:08)
[2016-12-29] MEDS: PHENYTOIN 100 MG CAPSULE PO SCH ×2 (08:19→20:47)
[2016-12-29] MEDS: amLODIPine BESYLATE 5 MG TABLET PO SCH (08:19)
[2016-12-29] MEDS: METOPROLOL TARTRATE 50 MG TABLET PO SCH ×2 (08:20→21:07)
[2016-12-29] MEDS: LOSARTAN POTASSIUM 25 MG TABLET PO SCH (08:20)
[2016-12-29] MEDS: FUROSEMIDE 20 MG/2 ML VIAL IVP SCH ×2 (08:21→21:07)
[2016-12-29 08:28] VITALS: BP_SYST 141
[2016-12-29 13:11] VITALS: BP_SYST 126
[2016-12-29] MEDS ORDERED: POTASSIUM CHLORIDE 20 MEQ TAB.PRT.SR PO ONE (18:45)
[2016-12-29] MEDS: ENOXAPARIN SODIUM 40 MG/0.4 ML SYRINGE SUBCUT SCH (18:54)
[2016-12-29 20:00] VITALS: BP_SYST 130
[2016-12-30 02:48] VITALS: BP_SYST 140
[2016-12-30] MEDS: MORPHINE 4 MG/ML INJ. SYRINGE IVP PRN ×4 (03:14→20:39)
[2016-12-30 03:41] VITALS: BP_SYST 136
[2016-12-30] MEDS: MORPHINE 2 MG/ML INJ. SYRINGE IVP PRN ×2 (04:29→16:28)
[2016-12-30 07:11] LABS: BASOPHILS % (AUTO) 0.5 % (0.0-2.0); EOSINOPHILS # (AUTO) 0.5 K/uL (0.0-0.4); EOSINOPHILS % (AUTO) 5.5 % (0.0-4.0); HEMATOCRIT 26.7 % (36-54); HEMOGLOBIN 8.7 g/dL (14.0-18.0); LYMPHOCYTES # (AUTO) 2.8 K/uL (1.0-5.5); LYMPHOCYTES % (AUTO) 31.2 % (20.5-51.5); MEAN CORPUSCULAR HEMOGLOBIN 31 pg (27-31); MEAN CORPUSCULAR HGB CONC 33 % (32-36); MEAN CORPUSCULAR VOLUME 96 fL (79.0-98.0); MONOCYTES # (AUTO) 1.3 K/uL (0.0-1.0); MONOCYTES % (AUTO) 14.8 % (1.7-9.3); NEUTROPHILS # (AUTO) 4.3 K/uL (1.8-7.7); PLATELET COUNT (AUTO) 297 K/uL (130-430); RED BLOOD CELL COUNT(AUTO) 2.79 MIL/uL (4.2-6.2); RED CELL DISTRIBUTION WIDTH 16.4 % (9.0-15.0); WHITE BLOOD COUNT (AUTO) 8.9 K/uL (4.8-10.8)
[2016-12-30 07:38] LABS: ALBUMIN 1.6 g/dL (3.4-4.8); CALCIUM 8.2 mg/dL (8.4-11.0); CREATININE 0.71 mg/dL (0.55-1.30); POTASSIUM 3.4 mmol/L (3.5-5.1); TOTAL BILIRUBIN 0.6 mg/dL (0.0-1.0)
[2016-12-30] MEDS: NORMAL SALINE 5 ML DISP.SYRIN IVF SCH ×2 (08:05→14:25)
[2016-12-30] MEDS: PHENYTOIN 100 MG CAPSULE PO SCH ×2 (09:08→20:42)
[2016-12-30] MEDS: BACLOFEN 10 MG TABLET PO SCH ×3 (09:08→20:42)
[2016-12-30] MEDS: amLODIPine BESYLATE 5 MG TABLET PO SCH (09:09)
[2016-12-30] MEDS: LOSARTAN POTASSIUM 25 MG TABLET PO SCH (09:09)
[2016-12-30] MEDS: METOPROLOL TARTRATE 50 MG TABLET PO SCH ×2 (09:10→20:37)
[2016-12-30] MEDS: FUROSEMIDE 20 MG/2 ML VIAL IVP SCH ×2 (09:11→20:42)
[2016-12-30] MEDS: DIPHENHYDRAMINE HCL 50 MG CAPSULE PO PRN ×2 (10:29→20:42)
[2016-12-30] MEDS: MUPIROCIN 2% TOPICAL OINTMENT 22 GM TP SCH ×2 (12:15→20:47)
[2016-12-30] MEDS: HYDROcodone/ACETAMIN 10-325 MG TAB PO PRN ×2 (12:17→19:01)
[2016-12-30 12:55] VITALS: BP_SYST 123
[2016-12-30] MEDS ORDERED: POTASSIUM CHLORIDE 20 MEQ TAB.PRT.SR PO SCH (14:45)
[2016-12-30 16:47] VITALS: BP_SYST 131
[2016-12-30] MEDS ORDERED: BACTROBAN TP (17:00)
[2016-12-30] MEDS ORDERED: FURO-150 PO (17:10)
[2016-12-30] MEDS: ENOXAPARIN SODIUM 40 MG/0.4 ML SYRINGE SUBCUT SCH (19:00)
[2016-12-30 20:52] VITALS: BP_SYST 130
== END 2016-12-30 21:45 | DRG 194 ==
LOC: SED 11:57 → STU 14:16
PROVIDERS: ADMIT Preventive Medicine Preventive Medicine/Occupational Environmental Medicine; ATTEND Preventive Medicine Preventive Medicine/Occupational Environmental Medicine
DX: I11.0 Hypertensive heart disease with heart failure (principal); E43 Unspecified severe protein-calorie malnutrition; I27.2 Other secondary pulmonary hypertension; E88.09 Other disorders of plasma-protein metabolism, not elsewhere classified; I50.23 Acute on chronic systolic (congestive) heart failure; E78.5 Hyperlipidemia, unspecified; I34.0 Nonrheumatic mitral (valve) insufficiency; G89.29 Other chronic pain; R73.9 Hyperglycemia, unspecified; R74.0 Nonspecific elevation of levels of transaminase and lactic acid dehydrogenase [LDH]; J45.909 Unspecified asthma, uncomplicated; D64.9 Anemia, unspecified; G40.909 Epilepsy, unspecified, not intractable, without status epilepticus; Z91.018 Allergy to other foods; Z87.11 Personal history of peptic ulcer disease; Z86.14 Personal history of Methicillin resistant Staphylococcus aureus infection; Z87.891 Personal history of nicotine dependence; Z87.81 Personal history of (healed) traumatic fracture; Z90.49 Acquired absence of other specified parts of digestive tract
CPT/HCPCS: 36415; 71010; 80048; 80053; 81000-TC; 83735-TC; 83880; 84100-TC; 85025; 85610-TC; 85730-TC; 87081; 93005; 96374; 96375; 99285; J1200; J1650; J1940; J2270; Q0163